=== PATIENT | female | born 1960 | race Caucasian/White ===

== ENCOUNTER → 2016-12-05 | Outpatient (CLI) | payer BC ==
[2016-08-30 12:30] VITALS: BP 111/57
[~2016-12-05] MED LIST: LEVO750T31 PO
--- NOTE | 2016-12-05 09:29 | RAD ---
DATE: 12/05/2016 EXAM: MAMMO NELSON SCREENING BILATERAL HISTORY: Screening. The history of breast reduction surgery is noted COMPARISON: Digitized film screening examination from 4 years earlier This study was interpreted with the benefit of Computerized Aided Detection (CAD). FINDINGS: The breast parenchyma shows scattered fibroglandular densities. Breast parenchyma level B. There has not been a significant change in the appearance of the breasts. Occasional benign-appearing calcifications are noted. IMPRESSION: Benign findings BI-RADS CATEGORY: 2 BENIGN FINDING(S) RECOMMENDED FOLLOW-UP: 12M 12 MONTH FOLLOW-UP PQRS compliance statement: Patient information was entered into a reminder system with a target due date 12/05/2017 for the next mammogram. Mammography is a sensitive method for finding small breast cancers, but it does not detect them all and is not a substitute for careful clinical examination. A negative mammogram does not negate a clinically suspicious finding and should not result in delay in biopsying a clinically suspicious abnormality. "Our facility is accredited by the [employer] Mammography Program."
== END | disposition home or self-care (01) ==
LOC: MAMMO 07:55
PROVIDERS: ATTEND Obstetrics & Gynecology
DX: Z12.31 Encounter for screening mammogram for malignant neoplasm of breast (principal); Z01.419 Encounter for gynecological examination (general) (routine) without abnormal findings
CPT/HCPCS: 77063; G0202; 77067

== ENCOUNTER → 2017-02-25 | Outpatient (CLI) | payer BC ==
[2016-08-30 12:30] VITALS: BP 111/57
--- NOTE | 2017-02-25 12:02 | RAD ---
Right index finger, 3 views, 02/25/2017: History: Index finger pain and swelling No acute fracture or dislocation is identified. There is a small periarticular calcification along the ulnar aspect of the PIP joint. This is probably due to old trauma. A gouty tophus is less likely considering the lack of adjacent bony erosion. There is a very tiny periarticular calcification at the DIP joint. IMPRESSION: 1. Small periarticular densities as described above. 2. No acute bony abnormality is detected.
== END | disposition home or self-care (01) ==
LOC: DXRADRC 07:58
PROVIDERS: ATTEND Physician Assistant Medical
DX: M79.644 Pain in right finger(s) (principal); M85.841 Other specified disorders of bone density and structure, right hand; M79.89 Other specified soft tissue disorders
CPT/HCPCS: 73140

== ENCOUNTER → 2017-06-19 | Outpatient (CLI) | payer BC ==
[2016-08-30 12:30] VITALS: BP 111/57
--- NOTE | 2017-06-19 15:27 | RAD ---
HAND BILAT 3V Clinical Indication: RHEUMATOID ARTHRITIS Comparison: None. Findings: No acute fracture or malalignment. The joint spaces are maintained. Bony mineralization is normal for the patient's age. No significant soft tissue abnormality. No radiopaque foreign body. IMPRESSION: No acute fracture or malalignment. The joint spaces are maintained.
--- NOTE | 2017-06-19 15:30 | RAD ---
FOOT BILAT 3V Clinical Indication: RHEUMATOID ARTHRITIS Comparison: None. Findings: Right foot: No acute fracture or malalignment. Os perineum. Calcaneal enthesophyte. The joint spaces are maintained. Bony mineralization is normal for the patient's age. No significant soft tissue abnormality. No radiopaque foreign body. Left foot: No acute fracture or malalignment. Os naviculare versus remote injury. Os perineum. The joint spaces are maintained. Bony mineralization is normal for the patient's age. No significant soft tissue abnormality. No radiopaque foreign body. IMPRESSION: No acute fracture or malalignment. The joint spaces are maintained.
== END | disposition home or self-care (01) ==
LOC: DXRAD 11:57
PROVIDERS: ATTEND Internal Medicine Rheumatology
DX: M05.79 Rheumatoid arthritis with rheumatoid factor of multiple sites without organ or systems involvement (principal)
CPT/HCPCS: 73130; 73630

== ENCOUNTER → 2017-09-04 | Outpatient (CLI) | payer BC ==
[2016-08-30 12:30] VITALS: BP 111/57
--- NOTE | 2017-09-04 15:48 | RAD ---
Indication: Chest congestion. Time of exam 1524 hours per Correlation is made with prior study from 10/15/2016. Previously noted parenchymal density in the right base has largely resolved. There is some mild residual density present right mid to lower lung field. The left lung is clear. No effusion or pneumothorax is seen. Impression: Residual versus new infiltrate or atelectasis right mid to lower lung field when compared with exam from 10/15/2016.
== END | disposition home or self-care (01) ==
LOC: PMG 15:10
PROVIDERS: ATTEND Physician Assistant Medical
DX: R09.89 Other specified symptoms and signs involving the circulatory and respiratory systems (principal); F17.200 Nicotine dependence, unspecified, uncomplicated
CPT/HCPCS: 71020

== ENCOUNTER → 2018-02-19 | Outpatient (CLI) | payer BC ==
[2016-08-30 12:30] VITALS: BP 111/57
--- NOTE | 2018-02-23 09:33 | RAD ---
DATE: 02/23/2018 EXAM: MAMMO NELSON SCREENING BILATERAL HISTORY: Screening. The history of breast reduction surgery is noted COMPARISON: Digitized film screening examination from 4 years earlier This study was interpreted with the benefit of Computerized Aided Detection (CAD). FINDINGS: The breast parenchyma shows scattered fibroglandular densities. Breast parenchyma level B. There has not been a significant change in the appearance of the breasts. Occasional benign-appearing calcifications are noted. No suspicious calcifications, spiculated mass or area of architectural distortion. The skin and nipples are within normal limits. IMPRESSION: Benign findings BI-RADS CATEGORY: 2 BENIGN FINDING(S) RECOMMENDED FOLLOW-UP: 12M 12 MONTH FOLLOW-UP PQRS compliance statement: Patient information was entered into a reminder system with a target due date for the next mammogram. Mammography is a sensitive method for finding small breast cancers, but it does not detect them all and is not a substitute for careful clinical examination. A negative mammogram does not negate a clinically suspicious finding and should not result in delay in biopsying a clinically suspicious abnormality. "Our facility is accredited by the [employer] Mammography Program."
== END | disposition home or self-care (01) ==
LOC: MAMMO 09:25
PROVIDERS: ATTEND Physician Assistant Medical
DX: Z12.31 Encounter for screening mammogram for malignant neoplasm of breast (principal)
CPT/HCPCS: 77063; 77067

== ENCOUNTER → 2018-02-26 | Outpatient (CLI) | payer BC ==
[2016-08-30 12:30] VITALS: BP 111/57
--- NOTE | 2018-02-26 12:24 | RAD ---
Left foot ultrasound, 02/26/2018: History: Lump between the third and fourth metatarsals The area of clinical concern in the left metatarsal region was carefully scanned. There is a predominantly hypoechoic, mildly heterogeneous process with internal vascularity present between the third and fourth metatarsals in the area of clinical concern. It can be seen with both plantar and anterior scanning. It is asymmetric compared to the right foot or the other intermetatarsal regions. In the axial plane it measures approximately 12 mm in greatest width. It is difficult to measure in the other planes. IMPRESSION: Solid-appearing mass between the third and fourth metatarsals as described above. The findings are nonspecific, however, the location raises possibility of a Akers's neuroma. A neoplastic etiology cannot be excluded. MR scanning is suggested for further evaluation.
== END | disposition home or self-care (01) ==
LOC: US 10:35
PROVIDERS: ATTEND Physician Assistant Medical
DX: G57.62 Lesion of plantar nerve, left lower limb (principal)
CPT/HCPCS: 76881

== ENCOUNTER → 2018-07-16 | Outpatient (CLI) | payer BC ==
[2016-08-30 12:30] VITALS: BP 111/57
[~2018-07-16] MED LIST changes: +AMOX1TAB61 PO; +PRED50TA PO
[2018-07-16 10:58] LABS: BASO # 0.1 x10^3/uL (0.0-0.2); BASO % 2 % (0-3); EOS # 0.1 x10^3/uL (0.0-0.7); EOS % 2 % (0-3); HEMATOCRIT 46.3 % (36.0-47.0); HEMOGLOBIN 15.5 g/dL (12.0-15.5); LYMPH # 1.1 x10^3/uL (1.0-4.8); LYMPH % 27 % (24-48); MEAN CORPUSCULAR HEMOGLOBIN 30 pg (25-35); MEAN CORPUSCULAR HGB CONC 34 g/dL (31-37); MEAN CORPUSCULAR VOLUME 88 fL (79-100); MONO # 0.4 x10^3/uL (0.0-1.1); MONO % 10 % (0-9); NEUT # 2.5 x10^3uL (1.8-7.7); NEUT % 59 % (31-73); PLATELET COUNT 211 x10^3/uL (140-400); RED BLOOD COUNT 5.23 x10^6/uL (3.50-5.40); RED CELL DISTRIBUTION WIDTH 13.7 % (11.5-14.5); WHITE BLOOD COUNT 4.2 x10^3/uL (4.0-11.0)
[2018-07-16 11:01] LABS: ALBUMIN 3.7 g/dL (3.4-5.0); ALBUMIN/GLOBULIN RATIO 0.9 (1.0-1.7); C REACTIVE PROTEIN 2.7 mg/L (0-3.3); CALCIUM 9.2 mg/dL (8.5-10.1); CREATININE 0.8 mg/dL (0.6-1.0); GFR 73.9; POTASSIUM 4.2 mmol/L (3.5-5.1); TOTAL BILIRUBIN 0.3 mg/dL (0.2-1.0); TOTAL PROTEIN 7.6 g/dL (6.4-8.2)
[2018-07-16 12:03] LABS: SEDIMENTATION RATE 10 (0-25)
== END | disposition home or self-care (01) ==
LOC: LAB 10:00
PROVIDERS: ATTEND Internal Medicine Rheumatology
DX: M05.79 Rheumatoid arthritis with rheumatoid factor of multiple sites without organ or systems involvement (principal); Z79.899 Other long term (current) drug therapy
CPT/HCPCS: 36415; 80053; 85025; 85651; 86140; 86704; 86706; 86803

== ENCOUNTER 2018-07-18 20:04 | Emergency (ER) | payer BC ==
[~2018-07-18] VITALS: Ht 170.2 cm; Wt 72.6 kg
[~2018-07-18 20:04] MED LIST changes: -AMOX1TAB61 PO; -PRED50TA PO
[2018-07-18 20:20] VITALS: BP 127/65
[2018-07-18] MEDS ORDERED: PRED50TA PO (20:35)
[2018-07-18] MEDS ORDERED: AMOX1TAB61 PO (20:35)
[2018-07-18] MEDS ORDERED: cefTRIAXone SODIUM 1 GM VIAL IV ONE (20:35)
--- NOTE | 2018-07-18 20:38 | PHYS DOC ---
Adult General Chief Complaint Chief Complaint cough HPI HPI This is a very pleasant 57 years old female with history of COPD presented in the emergency department with shortness of breath on exertion low grade temperature started yesterday . No chest pain or abdominal pain urgency frequency or hematuria Review of Systems Review of Systems Constitutional: + fever Eyes: Denies change in visual acuity, redness, or eye pain [] HENT: Denies nasal congestion or sore throat [] Respiratory:+ cough or shortness of breath [] Cardiovascular: No additional information not addressed in HPI [] GI: Denies abdominal pain, nausea, vomiting, bloody stools or diarrhea [] : Denies dysuria or hematuria [] Musculoskeletal: Denies back pain or joint pain [] Integument: Denies rash or skin lesions [] Neurologic: Denies headache, focal weakness or sensory changes [] Endocrine: Denies polyuria or polydipsia [] All other systems were reviewed and found to be within normal limits, except as documented in this note. Current Medications Current Medications Current Medications Medications (Trade) Dose Ordered Sig/Kam Start Time Stop Time Status Last Admin Dose Admin Albuterol Sulfate (Ventolin) 2.5 mg 1X ONCE 07/18/18 20:45 07/18/18 20:46 UNV Ceftriaxone Sodium (Rocephin Im) 1 gm 1X ONCE 07/18/18 20:45 07/18/18 20:46 UNV Prednisone (Prednisone) 60 mg 1X ONCE 07/18/18 20:45 07/18/18 20:46 UNV Allergies Allergies Allergies Coded Allergies Type Severity Reaction Last Updated Verified No Known Drug Allergies 08/30/16 No Physical Exam Physical Exam Constitutional: Well developed, well nourished, no acute distress, non-toxic appearance. [] HENT: Normocephalic, atraumatic, bilateral external ears normal, oropharynx moist, no oral exudates, nose normal. [] Eyes: PERRLA, EOMI, conjunctiva normal, no discharge. [] Neck: Normal range of motion, no tenderness, supple, no stridor. [] Cardiovascular:Heart rate regular rhythm, no murmur [] Lungs & Thorax: Diminished wheezing no crackles] Abdomen: Bowel sounds normal, soft, no tenderness, no masses, no pulsatile masses. [] Skin: Warm, dry, no erythema, no rash. [] Back: No tenderness, no CVA tenderness. [] Extremities: No tenderness, no cyanosis, no clubbing, ROM intact, no edema. [] Neurologic: Alert and oriented X 3, normal motor function, normal sensory function, no focal deficits noted. [] Psychologic: Affect normal, judgement normal, mood normal. [] Current Patient Data Vital Signs Vital Signs Date Time Temp Pulse Resp B/P (MAP) Pulse Ox O2 Delivery O2 Flow Rate FiO2 07/18/18 20:20 103.0 109 18 91 Room Air EKG EKG [] Radiology/Procedures Radiology/Procedures [] Course & Med Decision Making Course & Med Decision Making Pertinent Labs and Imaging studies reviewed. (See chart for details) [] Final Impression Final Impression COPD exacerbation Patient will be on prednisone, Augmentin, inhalers[] Problems: (1) COPD exacerbation Dragon Disclaimer Dragon Disclaimer This electronic medical record was generated, in whole or in part, using a voice recognition dictation system. TAYLA JOAQUIN MD Jul 18, 2018 20:38
[2018-07-18] MEDS: predniSONE 20 MG TABLET PO ONE (20:42)
[2018-07-18] MEDS: cefTRIAXone IM 1 GM VIAL IM ONE (20:42)
[2018-07-18] MEDS: ALBUTEROL SULFATE 2.5 MG/3 ML NEBU. NEB ONE (20:52)
== END 2018-07-18 21:12 | disposition home or self-care (01) ==
LOC: ER 20:04
DX: J44.1 Chronic obstructive pulmonary disease with (acute) exacerbation (principal)
CPT/HCPCS: 96372; 99283; J0696; J7512; J7613

== ENCOUNTER → 2018-09-02 | Outpatient (CLI) | payer BC ==
[~2018-09-02] MED LIST changes: +AMOX1TAB61 PO; +PRED50TA PO
[2018-09-02 10:08] LABS: BASO % 1 % (0-3); EOS # 0.1 x10^3/uL (0.0-0.7); EOS % 2 % (0-3); HEMOGLOBIN 14.9 g/dL (12.0-15.5); LYMPH # 1.6 x10^3/uL (1.0-4.8); LYMPH % 37 % (24-48); MEAN CORPUSCULAR HEMOGLOBIN 30 pg (25-35); MEAN CORPUSCULAR HGB CONC 34 g/dL (31-37); MEAN CORPUSCULAR VOLUME 89 fL (79-100); MONO # 0.5 x10^3/uL (0.0-1.1); MONO % 10 % (0-9); NEUT # 2.2 x10^3uL (1.8-7.7); NEUT % 51 % (31-73); PLATELET COUNT 221 x10^3/uL (140-400); RED BLOOD COUNT 4.93 x10^6/uL (3.50-5.40); RED CELL DISTRIBUTION WIDTH 14.8 % (11.5-14.5); WHITE BLOOD COUNT 4.4 x10^3/uL (4.0-11.0)
[2018-09-02 10:13] LABS: ALBUMIN 3.6 g/dL (3.4-5.0); ALBUMIN/GLOBULIN RATIO 0.9 (1.0-1.7); C REACTIVE PROTEIN 0.8 mg/L (0-3.3); CALCIUM 9.4 mg/dL (8.5-10.1); CREATININE 0.8 mg/dL (0.6-1.0); GFR 73.7; POTASSIUM 3.7 mmol/L (3.5-5.1); TOTAL BILIRUBIN 0.3 mg/dL (0.2-1.0); TOTAL PROTEIN 7.4 g/dL (6.4-8.2)
[2018-09-02 11:13] LABS: SEDIMENTATION RATE 8 (0-25)
== END | disposition home or self-care (01) ==
LOC: LAB 08:52
PROVIDERS: ATTEND Internal Medicine Rheumatology
DX: M05.79 Rheumatoid arthritis with rheumatoid factor of multiple sites without organ or systems involvement (principal)
CPT/HCPCS: 36415; 80053; 85025; 85651; 86140

== ENCOUNTER → 2019-06-27 | Outpatient (CLI) | payer BC ==
[2019-06-27 10:27] LABS: BASO # 0.1 x10^3/uL (0.0-0.2); BASO % 2 % (0-3); EOS # 0.1 x10^3/uL (0.0-0.7); EOS % 2 % (0-3); HEMOGLOBIN 14.8 g/dL (12.0-15.5); LYMPH # 1.1 x10^3/uL (1.0-4.8); LYMPH % 32 % (24-48); MEAN CORPUSCULAR HEMOGLOBIN 30 pg (25-35); MEAN CORPUSCULAR HGB CONC 34 g/dL (31-37); MEAN CORPUSCULAR VOLUME 89 fL (79-100); MONO # 0.4 x10^3/uL (0.0-1.1); MONO % 12 % (0-9); NEUT # 1.7 x10^3uL (1.8-7.7); NEUT % 53 % (31-73); PLATELET COUNT 212 x10^3/uL (140-400); RED BLOOD COUNT 4.94 x10^6/uL (3.50-5.40); WHITE BLOOD COUNT 3.3 x10^3/uL (4.0-11.0)
[2019-06-27 10:36] LABS: ALBUMIN 3.6 g/dL (3.4-5.0); ALBUMIN/GLOBULIN RATIO 0.9 (1.0-1.7); C REACTIVE PROTEIN 1.2 mg/L (0-3.3); CALCIUM 9.1 mg/dL (8.5-10.1); CREATININE 0.8 mg/dL (0.6-1.0); GFR 73.7; POTASSIUM 3.7 mmol/L (3.5-5.1); TOTAL BILIRUBIN 0.4 mg/dL (0.2-1.0); TOTAL PROTEIN 7.6 g/dL (6.4-8.2)
[2019-06-27 11:31] LABS: SEDIMENTATION RATE 11 (0-25)
--- NOTE | 2019-06-28 08:32 | RAD ---
Examination: HAND BILAT 3V History: Polyarthralgia Comparison/Correlation: None Findings: A total of 3 images of the right hand and a total of 3 images of the left hand were provided. Joint spaces are unremarkable. No fracture or bone destruction. Soft tissues are unremarkable. No bony erosions identified. Soft tissues are grossly unremarkable. Bony mineralization is adequate. Impression: No significant degenerative change or other suspicious process. Electronically signed by: Alex Guzman MD (06/28/2019 8:29 AM) [facility]
== END | disposition home or self-care (01) ==
LOC: DXRAD 09:54
PROVIDERS: ATTEND Internal Medicine Rheumatology
DX: M05.79 Rheumatoid arthritis with rheumatoid factor of multiple sites without organ or systems involvement (principal)
CPT/HCPCS: 36415; 73130; 80053; 85025; 85651; 86140

== ENCOUNTER → 2019-11-16 | Outpatient (CLI) | payer BC ==
--- NOTE | 2019-11-16 16:30 | RAD ---
FOOT LEFT 3V History: Soft tissue mass at the plantar foot.. Comparison study: None FINDINGS: Small lucency at the margin of the distal medial aspect of the proximal first phalanx. Nonspecific but likely a small erosion. No evidence of acute fracture. No aggressive appearing bone destruction. Joint spaces and alignment appear intact. Small calcaneal enthesophyte. No significant soft tissue abnormality is seen. IMPRESSION: 1. Small eccentric lucency at the distal medial aspect of the proximal first phalanx. This is nonspecific, could represent an erosion or sequela of gout. This does not have an aggressive appearance. Depending on clinical concern, could be further evaluated with radiographic follow-up in several months. 2. No evidence of a soft tissue mass although could be difficult to detect. Consider ultrasound or MR for further evaluation, as indicated. Electronically signed by: Bhavesh Becerra MD (11/16/2019 4:27 PM) [id number]
== END | disposition home or self-care (01) ==
LOC: DXRAD 11:33
PROVIDERS: ATTEND Podiatrist Foot & Ankle Surgery
DX: M79.89 Other specified soft tissue disorders (principal)
CPT/HCPCS: 73630

== ENCOUNTER → 2019-11-16 | Outpatient (CLI) | payer BC ==
[2019-11-16 11:33] LABS: ALBUMIN 3.6 g/dL (3.4-5.0); ALBUMIN/GLOBULIN RATIO 0.9 (1.0-1.7); CALCIUM 8.9 mg/dL (8.5-10.1); CREATININE 0.7 mg/dL (0.6-1.0); GFR 85.6; TOTAL BILIRUBIN 0.4 mg/dL (0.2-1.0); TOTAL PROTEIN 7.5 g/dL (6.4-8.2)
[2019-11-16 11:39] LABS: BASO % 1 % (0-3); EOS # 0.1 x10^3/uL (0.0-0.7); EOS % 1 % (0-3); HEMATOCRIT 43.2 % (36.0-47.0); HEMOGLOBIN 14.6 g/dL (12.0-15.5); LYMPH # 1.8 x10^3/uL (1.0-4.8); LYMPH % 37 % (24-48); MEAN CORPUSCULAR HEMOGLOBIN 31 pg (25-35); MEAN CORPUSCULAR HGB CONC 34 g/dL (31-37); MEAN CORPUSCULAR VOLUME 91 fL (79-100); MONO # 0.4 x10^3/uL (0.0-1.1); MONO % 9 % (0-9); NEUT # 2.5 x10^3uL (1.8-7.7); NEUT % 52 % (31-73); PLATELET COUNT 212 x10^3/uL (140-400); RED BLOOD COUNT 4.74 x10^6/uL (3.50-5.40); WHITE BLOOD COUNT 4.8 x10^3/uL (4.0-11.0)
[2019-11-16 11:41] LABS: POTASSIUM 4.7 mmol/L (3.5-5.1)
[2019-11-16 13:33] LABS: SEDIMENTATION RATE 5 (0-25)
== END | disposition home or self-care (01) ==
LOC: LAB 10:10
PROVIDERS: ATTEND Internal Medicine Rheumatology
DX: M05.79 Rheumatoid arthritis with rheumatoid factor of multiple sites without organ or systems involvement (principal)
CPT/HCPCS: 36415; 80053; 85025; 85651; 86140

== ENCOUNTER → 2019-11-18 | Outpatient (CLI) | payer BC ==
--- NOTE | 2019-11-21 18:05 | RAD ---
BILATERAL SCREENING MAMMOGRAM, 3-D History: Routine screening. Comparison: 12/08/2012, 12/05/2016, 02/19/2018 mammographic exams. Technique: MLO and CC digital tomosynthesis (3D) images obtained. Radiologist reviewed these images on dedicated workstation. Findings: Breast Tissue Density B : There are scattered areas of fibroglandular density. There are no dominant masses, suspicious microcalcifications, or architectural distortion. Benign calcifications are present. IMPRESSION: No mammographic evidence of malignancy. Recommend routine screening. BI-RADS category 1: Negative. The images were reviewed with computer-aided detection. Patient information is entered into reminder system with a target due date for the next screening mammogram. Mammography is the most sensitive method for finding small breast cancers, but it does not detect them all and is not a substitute for careful clinical examination. A negative mammogram does not negate a clinically suspicious finding and should not result in delay in biopsying a clinically suspicious abnormality. "Our facility is accredited by the [employer] Mammography Program." Electronically signed by: Alex Guzman MD (11/21/2019 6:02 PM) [id number]
== END ==
LOC: MAMMO 08:24
PROVIDERS: ATTEND Physician Assistant Medical
DX: Z12.31 Encounter for screening mammogram for malignant neoplasm of breast (principal)
CPT/HCPCS: 77063; 77067

== ENCOUNTER → 2020-11-23 | Outpatient (CLI) | payer MEDICARE, BC ==
--- NOTE | 2020-11-23 11:08 | RAD ---
EXAM: Chest, 2 views. HISTORY: Cough and smoking. COMPARISON: 09/04/2017 FINDINGS: 2 views of the chest are obtained. There is no infiltrate, pleural effusion or pneumothorax . There are mediastinal and left upper lobe clips. The heart is stable in size. There is hyperinflati on due to inspiratory effort or emphysema. IMPRESSION: No acute pulmonary finding. Electronically signed by: Veronica Nichols MD (11/23/2020 11:06 AM) [id number]
== END ==
LOC: RAD 10:39
PROVIDERS: ATTEND Physician Assistant Medical
DX: J44.9 Chronic obstructive pulmonary disease, unspecified (principal); Z87.891 Personal history of nicotine dependence
CPT/HCPCS: 71046

== ENCOUNTER 2021-02-09 08:09 | Emergency (ER) | payer MEDICARE, BC ==
[~2021-02-09] VITALS: Ht 167.6 cm; Wt 81.9 kg
--- NOTE | 2021-02-09 08:28 | PHYS DOC ---
Past History Past Medical History: Arthritis, Asthma, COPD, GERD, Hypothyroid, Pneumonia Past Surgical History: , Hysterectomy, Other Alcohol Use: None Drug Use: None General Adult EDM: Chief Complaint: SHORTNESS OF BREATH HPI: HPI: 60-year-old female presents with shortness of breath and chest tightness. Patient has history of COPD. She feels like she is having a little bit of chest discomfort with deep breathing. She believes it is from coughing so much lately. She has seen her primary care physician who put her on steroids. She is already been on them for for 5 days. She is still feeling a bit short of breath. She checked her oxygen at home and her home O2 showed 75. She was concerned that this might mean she has pneumonia. She typically runs around 90. She is not on home oxygen. She continues to smoke. No history of cardiac disease. She has been taking her COPD medicines as prescribed. She took a breathing treatment prior to arrival and she says that this made her feel a bit better. Review of Systems: Review of Systems: Constitutional: Denies fever or chills Eyes: Denies change in visual acuity HENT: Denies nasal congestion or sore throat Respiratory: Cough with shortness of breath Cardiovascular: Chest pain GI: Denies abdominal pain, nausea, vomiting, bloody stools or diarrhea : Denies dysuria Musculoskeletal: Denies back pain or joint pain Integument: Denies rash Neurologic: Denies headache, focal weakness or sensory changes Endocrine: Denies polyuria or polydipsia Lymphatic: Denies swollen glands Psychiatric: Denies depression or anxiety Allergies: Allergies: Allergies Coded Allergies Type Severity Reaction Last Updated Verified No Known Drug Allergies 08/30/16 No Physical Exam: PE: Constitutional: Well developed, well nourished, no acute distress, non-toxic appearance. [] HENT: Normocephalic, atraumatic, bilateral external ears normal, oropharynx moist, no oral exudates, nose normal. [] Eyes: PERRLA, EOMI, conjunctiva normal, no discharge. [] Neck: Normal range of motion, no tenderness, supple, no stridor. [] Cardiovascular: Heart rate regular rhythm, no murmur [] Lungs & Thorax: Bilateral breath sounds diminished with mild end expiratory wheeze at the right base [] Abdomen: Bowel sounds normal, soft, no tenderness, no masses, no pulsatile masses. [] Skin: Warm, dry, no erythema, no rash. [] Back: No tenderness, no CVA tenderness. [] Extremities: No tenderness, no cyanosis, no clubbing, ROM intact, no edema. [] Neurologic: Alert and oriented X 3, normal motor function, normal sensory function, no focal deficits noted. [] Psychologic: Affect normal, judgement normal, mood normal. [] EKG: EKG: [] Radiology/Procedures: Radiology/Procedures: [] Heart Score: C/O Chest Pain: Yes HEART Score for Chest Pain: HEART Score for Chest Pain Response (Comments) Value History Slighlty/Non-Suspicious 0 ECG Normal 0 Age >45 - < 65 1 Risk Factors 1 or 2 Risk Factors 1 Troponin < Normal Limit 0 Total 2 Risk Factors: Risk Factors: DM, Current or recent (<one month) smoker, HTN, HLP, family history of CAD, obesity. Risk Scores: Score 0 - 3: 2.5% MACE over next 6 weeks - Discharge Home Score 4 - 6: 20.3% MACE over next 6 weeks - Admit for Clinical Observation Score 7 - 10: 72.7% MACE over next 6 weeks - Early Invasive Strategies Course & Med Decision Making: Course & Med Decision Making Pertinent Labs and Imaging studies reviewed. (See chart for details) The patient's labs are unremarkable except for slightly elevated sodium and a slightly low potassium. I have given her a DuoNeb treatment. EKG is unremarkable. Troponin is negative. Her chest x-ray is negative for pneumonia. I think the patient is already on appropriate treatment. I have advised her to continue her therapy as prescribed. She is stable for discharge at this time. [] Dragon Disclaimer: Dragon Disclaimer: This electronic medical record was generated, in whole or in part, using a voice recognition dictation system. Departure Departure: Impression: Primary Impression: COPD exacerbation Disposition: HOME / SELF CARE / HOMELESS Condition: STABLE Referrals: ANISHA WYNNE (PCP) Patient Instructions: Chronic Obstructive Pulmonary Disease Exacerbation, [id number] MARY ANNE DESHPANDE DO February 09, 2021 08:28
[2021-02-09] MEDS ORDERED: IPRATRPIUM/ALBUTEROL 0.5/2.5MG 3 ML NEBU. NEB ONE (08:30)
[2021-02-09 08:33] VITALS: BP 164/94
--- NOTE | 2021-02-09 08:33 | RAD ---
XR CHEST 1V CLINICAL INDICATIONS: Chest pain COMPARISON: November 23, 2020. Findings: No acute lung infiltrate or pleural effusion or pulmonary edema or lung mass or pneumothora x is seen. The heart size, pulmonary vasculature, mediastinum and both alise are unremarkable. IMPRESSION: No acute radiographic abnormality is seen. Electronically signed by: Rolan Guillermo MD (02/09/2021 8:30 AM) [id number]
[2021-02-09 08:42] LABS: BASO % 1 % (0-3); EOS # 0.1 x10^3/uL (0.0-0.7); EOS % 1 % (0-3); HEMATOCRIT 40.4 % (36.0-47.0); HEMOGLOBIN 13.5 g/dL (12.0-15.5); LYMPH # 3.4 x10^3/uL (1.0-4.8); LYMPH % 41 % (24-48); MEAN CORPUSCULAR HEMOGLOBIN 31 pg (25-35); MEAN CORPUSCULAR HGB CONC 33 g/dL (31-37); MEAN CORPUSCULAR VOLUME 92 fL (79-100); MONO # 0.7 x10^3/uL (0.0-1.1); MONO % 8 % (0-9); NEUT % 49 % (31-73); PLATELET COUNT 240 x10^3/uL (140-400); RED BLOOD COUNT 4.39 x10^6/uL (3.50-5.40); WHITE BLOOD COUNT 8.2 x10^3/uL (4.0-11.0)
[2021-02-09 08:54] LABS: CREATININE 0.9 mg/dL (0.6-1.0); GFR 63.9; POTASSIUM 3.3 mmol/L (3.5-5.1)
[2021-02-09 09:00] LABS: ALBUMIN 3.7 g/dL (3.4-5.0); ALBUMIN/GLOBULIN RATIO 1.1 (1.0-1.7); TOTAL BILIRUBIN 0.3 mg/dL (0.2-1.0)
--- NOTE | 2021-02-09 09:50 | EKG ---
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
== END 2021-02-09 10:00 | disposition home or self-care (01) ==
LOC: ER 08:09
DX: J44.1 Chronic obstructive pulmonary disease with (acute) exacerbation (principal); K21.9 Gastro-esophageal reflux disease without esophagitis; Z90.710 Acquired absence of both cervix and uterus
CPT/HCPCS: 36415; 71045; 80053; 84484; 85025; 93005; 94640; 99284-25

== ENCOUNTER → 2021-04-19 | Outpatient (CLI) | payer MEDICARE, BC ==
[2021-04-19 17:05] LABS: FREE T4 1.09 ng/dL (0.76-1.46); THYROID STIM HORMONE (TSH) 0.942 uIU/mL (0.358-3.740)
[2021-04-26 08:10] LABS: TESTOSTERONE FREE 0.98 ng/dL (0.10-0.85); TESTOSTERONE TOTAL 43 ng/dL (4-50)
== END ==
LOC: LAB 10:33
PROVIDERS: ATTEND Obstetrics & Gynecology
DX: N95.1 Menopausal and female climacteric states (principal)
CPT/HCPCS: 36415; 84402; 84403; 84439; 84443

== ENCOUNTER → 2021-06-10 | Outpatient (CLI) | payer MEDICARE, BC ==
--- NOTE | 2021-06-10 09:59 | RAD ---
Examination: CT chest without contrast HISTORY: History of recurrent pneumonia COMPARISON: None TECHNIQUE: Axial CT images of the chest were performed without contrast. Coronal and sagittal reforma ts are performed Exposure: One or more of the following individualized dose reduction techniques were utilized for thi s examination: 1. Automated exposure control 2. Adjustment of the mA and/or kV according to patient size 3. Use of iterative reconstruction technique FINDINGS: The central airways are patent. The heart size grossly appears unremarkable. Small mediastinal lymph nodes identified. There are faint airspace opacities identified in the bilateral upper lobes, left li ngula likely infiltrates. No evidence of pleural effusion or pneumothorax. The visualized noncontrast ed liver, spleen, adrenals grossly appears unremarkable Mild degenerative changes thoracic spine. Lap band identified in the proximal stomach. IMPRESSION: 1. Faint airspace opacities identified in the bilateral upper lobes and left lingula likely infiltrat es/pneumonia. Follow-up to resolution. Electronically signed by: Arjun Clarke MD (06/10/2021 9:56 AM) [id number]
== END ==
LOC: CT 08:19
PROVIDERS: ATTEND Physician Assistant Medical
DX: J18.9 Pneumonia, unspecified organism (principal)
CPT/HCPCS: 71250

== ENCOUNTER → 2021-08-09 | Outpatient (CLI) | payer MEDICARE, BC ==
--- NOTE | 2021-08-09 09:29 | RAD ---
PA and lateral views of the chest. Comparison: 02/09/2021. Indication: Cough fever and viral infection Findings: The heart size is normal. No pneumothorax or effusion. Very mild patchy interstitial opacities are se en in the right lung base and the left lung apex. The bony structures are intact. Impression: 1. Minimal patchy interstitial opacities suggest atypical viral infection. Electronically signed by: Everett Boogie MD (08/09/2021 9:27 AM) [id number]
== END ==
LOC: RAD 09:07
PROVIDERS: ATTEND Nurse Practitioner Family
DX: B34.9 Viral infection, unspecified (principal)
CPT/HCPCS: 71046

== ENCOUNTER 2021-08-11 06:25 | Emergency (ER) | payer MEDICARE, BC ==
[~2021-08-11] VITALS: Ht 167.6 cm; Wt 81.9 kg
[2021-08-11 06:40] VITALS: BP 135/75
[2021-08-11] MEDS ORDERED: predniSONE 20 MG TABLET PO ONE (07:15)
--- NOTE | 2021-08-11 07:15 | PHYS DOC ---
Past History Past Medical History: GERD, Hypothyroid Past Surgical History: , Hysterectomy Additional Past Surgical Histo: LAP BAND, BREAST REDUCTION Alcohol Use: None Drug Use: None General Adult EDM: Chief Complaint: SHORTNESS OF BREATH HPI: HPI: Patient is a 60-year-old female with COPD coming in for shortness of breath. Patient was seen in urgent care 2 days ago and was diagnosed with viral pneumonia, was given a Z-Paulino there. Patient lives with her adult son who tested positive for Covid 2 days ago, patient's test 2 days ago was negative. Patient was vaccinated with her second dose of Moderna in April. Patient smokes tobacco but has not had a cigarette in the past 5 days. Review of Systems: Review of Systems: Constitutional: Denies fever or chills Eyes: Denies change in visual acuity HENT: Denies nasal congestion or sore throat Respiratory: Denies cough or shortness of breath Cardiovascular: Denies chest pain or edema GI: Denies abdominal pain, nausea, vomiting, bloody stools or diarrhea : Denies dysuria Musculoskeletal: Denies back pain or joint pain Integument: Denies rash Neurologic: Denies headache, focal weakness or sensory changes Endocrine: Denies polyuria or polydipsia Lymphatic: Denies swollen glands Psychiatric: Denies depression or anxiety Allergies: Allergies: Allergies Coded Allergies Type Severity Reaction Last Updated Verified No Known Drug Allergies 08/30/16 No Physical Exam: PE: Constitutional: Well developed, well nourished, no acute distress, non-toxic appearance. [] HENT: Normocephalic, atraumatic, bilateral external ears normal, oropharynx moist, no oral exudates, nose normal. [] Eyes: PERRLA, EOMI, conjunctiva normal, no discharge. [] Neck: Normal range of motion, no tenderness, supple, no stridor. [] Cardiovascular:Heart rate regular rhythm, no murmur [] Lungs & Thorax: Bilateral breath sounds clear to auscultation [] Abdomen: Bowel sounds normal, soft, no tenderness, no masses, no pulsatile masses. [] Skin: Warm, dry, no erythema, no rash. [] Back: No tenderness, no CVA tenderness. [] Extremities: No tenderness, no cyanosis, no clubbing, ROM intact, no edema. [] Neurologic: Alert and oriented X 3, normal motor function, normal sensory function, no focal deficits noted. [] Psychologic: Affect normal, judgement normal, mood normal. [] Current Patient Data: Vital Signs: Vital Signs Date Time Temp Pulse Resp B/P (MAP) Pulse Ox O2 Delivery O2 Flow Rate FiO2 08/11/21 06:40 101.6 98 22 135/75 (95) 93 Room Air EKG: EKG: [] Radiology/Procedures: Radiology/Procedures: [address] [address] IMAGING REPORT Signed PATIENT: MICHAEL MARY ACCOUNT: [id number] : 1960 LOCATION: ER AGE: 60 SEX: F EXAM STATUS: REG ER ORD. PHYSICIAN: YASSINE POWER MD REASON: pna PROCEDURE: CHEST AP ONLY EXAM: Chest, single view. HISTORY: Pneumonia. COMPARISON: 08/09/2021 FINDINGS: A frontal view of the chest is obtained. There has been interval increase in partially consolidated lateral right upper lobe infiltrate. The superimposed on stable diffuse increased interstitial opacity. There is nodular opacity overlying the right costophrenic angle due to atelectasis or infiltrate. There is stable suspected partially consolidated right middle lobe infiltrate. There is a stable cardiac silhouette. There are clips overlying the left upper thorax. No pleural effusion or pneumothorax is seen. There is a gastric lap band. IMPRESSION: Increase in suspected partially consolidated lateral right upper lobe infiltrate and stable partially consolidated right middle lobe infiltrate superimposed on diffuse interstitial infiltrate. Electronically signed by: Veronica Marquez MD (08/11/2021 7:29 AM) [id number] DICTATED AND SIGNED BY: VERONICA MARQUEZ MD DATE: 08/11/21 0727 CC: YASSINE POWER MD; ANISHA WYNNE ~MTH0 0 [] Heart Score: C/O Chest Pain: No Risk Factors: Risk Factors: DM, Current or recent (<one month) smoker, HTN, HLP, family history of CAD, obesity. Risk Scores: Score 0 - 3: 2.5% MACE over next 6 weeks - Discharge Home Score 4 - 6: 20.3% MACE over next 6 weeks - Admit for Clinical Observation Score 7 - 10: 72.7% MACE over next 6 weeks - Early Invasive Strategies Course & Med Decision Making: Course & Med Decision Making Pertinent Labs and Imaging studies reviewed. (See chart for details) [] Nunu Disclaimer: Nunu Disclaimer: This electronic medical record was generated, in whole or in part, using a voice recognition dictation system. Departure Departure: Impression: Primary Impression: Pneumonia Additional Impressions: Person under investigation for COVID-19 Influenza A Disposition: HOME / SELF CARE / HOMELESS Condition: STABLE Referrals: ANISHA WYNNE (PCP) Additional Instructions: You have been tested for or diagnosed with COVID-19. It is an infection caused by a new type of coronavirus. COVID-19 will cause cold-like or mild flu symptoms in most. It can cause more severe symptoms like problems breathing in some. There is no treatment for COVID-19. The body will clear the infection over time. Self-care will help to ease discomfort. Steps to Take: Self-Care Rest as needed. Healthy habits may help you feel better. Steps include: Choose healthy foods including fruits and vegetables. Drink water throughout the day. Get plenty of sleep each night. If you smoke, try to quit. It may ease breathing. Avoid alcohol. Keep Others Healthy The virus can spread to others. Droplets are released every time you sneeze or cough. The droplets can get into the mouth, nose, or eyes of people near you and lead to infection. To lower the chances of spreading COVID-19 to others: Stay at home until your doctor has said it is safe to leave. If you tested positive this will mean staying isolated until both of the following are true: At least 7 days have passed since the start of illness. You are free of fever for at least 72 hours without the use of medicine. During this time: - Avoid public areas, events, or transportation. Do not return to work or school until your doctor has said it is safe to do so. - Call ahead if you need to go to a medical center. Let them know you may have COVID-19. It will help them guide you where to go. They may also ask you to wear a facemask when you come to the office. - If you call for emergency medical services, let them know you may have COVID- 19. While at home: - Try to avoid close contact with others. Stay about 6 feet away. - If possible, spend most of your time in a separate room from others. - Use a face mask if you will be in close contact with others such as sharing a room or vehicle. - Have someone wipe down common surfaces in the home. Use household wire galvanizer every day on areas like doorknobs, counters, or sinks. - Cough or sneeze into a tissue. Throw the tissue away right after use. If a tissue is not available, cough or sneeze into your elbow. - Wash your hands often. Wash them after sneezing or coughing. Use soap and water and wash for at least 20 seconds. Alcohol based hand carbon lamp cleaner can be used if soap and water is not available. - Do not prepare food for others. Avoid sharing personal items like forks, spoons, or toothbrushes. - Avoid close contact with pets while you are sick. There is no evidence of the virus passing to pets. This is a safety step until more is known about this virus. Isolation can be frustrating. Social interaction can help. Keep in touch with friends and family through phone and tech options. You can still interact with others in your home, just keep a safe distance of about 6 feet. Follow-up: Your doctors office will check in with you to see if there are any changes in your health. You may be asked to keep track of symptoms to share with them. They will also let you know when you are clear to be in public again. Problems to Look Out For: Contact your doctor if your recovery is not going as you expect. Get emergency care if you have problems such as: - Trouble breathing - Nonstop chest pain or pressure - Changes in awareness, confusion, or problems waking - Lips or face have bluish color - Worsening of symptoms If you think you have an emergency, call for emergency medical services right away. [facility] Prednisone (PREDNISONE) 50 Mg Tablet 1 TAB PO DAILY for steroid, #5 TAB Prov: YASSINE POWER MD 08/11/21 Amoxicillin/Potassium Clav (AUGMENTIN 875-125 TABLET) 1 Each Tablet 1 TAB PO BID for antibiotic for 5 Days, #10 TAB 0 Refills Prov: YASSINE POWER MD 08/11/21 YASSINE POWER MD Aug 11, 2021 07:15
--- NOTE | 2021-08-11 07:31 | RAD ---
EXAM: Chest, single view. HISTORY: Pneumonia. COMPARISON: 08/09/2021 FINDINGS: A frontal view of the chest is obtained. There has been interval increase in partially cons olidated lateral right upper lobe infiltrate. The superimposed on stable diffuse increased interstiti al opacity. There is nodular opacity overlying the right costophrenic angle due to atelectasis or inf iltrate. There is stable suspected partially consolidated right middle lobe infiltrate. There is a st able cardiac silhouette. There are clips overlying the left upper thorax. No pleural effusion or pneu mothorax is seen. There is a gastric lap band. IMPRESSION: Increase in suspected partially consolidated lateral right upper lobe infiltrate and stab le partially consolidated right middle lobe infiltrate superimposed on diffuse interstitial infiltrat e. Electronically signed by: Veronica Nichols MD (08/11/2021 7:29 AM) [id number]
[2021-08-11] MEDS ORDERED: ACETAMINOPHEN 500 MG TABLET PO ONE (08:00)
[2021-08-11] MEDS ORDERED: AMOX1TAB61 PO (08:10)
[2021-08-11] MEDS ORDERED: PRED50TA PO (08:10)
[2021-08-11 08:13] LABS: INFLUENZA B PATIENT NEGATIVE (NEGATIVE)
[2021-08-11 08:18] LABS: INFLUENZA A PATIENT POSITIVE (NEGATIVE)
== END 2021-08-11 09:02 | disposition home or self-care (01) ==
LOC: ER 06:25
DX: J09.X1 Influenza due to identified novel influenza A virus with pneumonia (principal); J44.9 Chronic obstructive pulmonary disease, unspecified; K21.9 Gastro-esophageal reflux disease without esophagitis; E03.9 Hypothyroidism, unspecified; Z20.822 Contact with and (suspected) exposure to COVID-19
CPT/HCPCS: 71045; 87804; 99284; C9803; J7512; U0003

== ENCOUNTER → 2021-11-13 | Outpatient (CLI) | payer MEDICARE, BC ==
--- NOTE | 2021-11-13 12:21 | RAD ---
XR CHEST 2V History: Pneumonia Comparison: 08/11/2021 Technique: PA and lateral chest radiographs. Findings: There are right midlung nodular opacities and minimal left lower lobe opacities which appear persiste nt however improved from July comparison. No pleural effusion or pneumothorax. Left chest wall shirley rgical clips and partial left anterior second rib resection. Cardiac mediastinal silhouette and pulmo nary vasculature are within normal limits. Upper abdominal laparoscopic adjustable gastric band and f illing port are present in the expected orientation. Impression: 1. Right greater than left lung airspace disease appears persistent however improved from July 16 comparison. Recommend following to radiographic resolution with repeat radiographs or CT of the c hest. Electronically signed by: Stuart Alvarado MD (11/13/2021 12:18 PM) [id number]
== END ==
LOC: RAD 08:16
PROVIDERS: ATTEND Physician Assistant Medical
DX: J84.89 Other specified interstitial pulmonary diseases (principal); J18.9 Pneumonia, unspecified organism
CPT/HCPCS: 71046

== ENCOUNTER 2021-11-24 01:55 | Emergency (ER) | payer MEDICARE, BC ==
[~2021-11-24] VITALS: Ht 170.2 cm; Wt 81.9 kg
--- NOTE | 2021-11-24 01:58 | PHYS DOC ---
Past History Past Medical History: GERD, Hypothyroid Past Surgical History: , Hysterectomy Additional Past Surgical Histo: LAP BAND, BREAST REDUCTION Alcohol Use: None Drug Use: None General Adult HPI: HPI: ".. I having some shortness of breath.. "... " I was diagnosed with COVID on .. been on antibiotics... .. recently change to Levaquin... Patient is a 61 year old female who presents with above hx and complaints dyspnea patient has history of sleep apnea requiring oxygen 2 L. Patient recently diagnosed with viral pneumonia and started on a Z-Paulino. Patient completed Z-Paulino and now on Levaquin. Patient does still smoke. Patient had Moderna x 2, but no buster. Pt. recent travel from [facility]. . Pt. still smokes but much less. Pt. has hx of GERD, Hypothyorid, lap band, breast reduction, COPD, and arthritis. Pt follows with [facility] for care. Review of Systems: Review of Systems: Constitutional: Complains of fever or chills Eyes: Denies change in visual acuity HENT: Denies nasal congestion or sore throat Respiratory: Complains of a nonproductive cough and shortness of breath Cardiovascular: Denies chest pain or edema GI: Denies abdominal pain, nausea, vomiting, bloody stools or diarrhea : Denies dysuria Musculoskeletal: Denies back pain or joint pain Integument: Denies rash Neurologic: Denies headache, focal weakness or sensory changes Endocrine: Denies polyuria or polydipsia Lymphatic: Denies swollen glands Psychiatric: Denies depression or anxiety Family History: Family History: Son had COVID infection, relatives in [place] had COVID infection Current Medications: Current Meds: See nursing for home meds Allergies: Allergies: Allergies Coded Allergies Type Severity Reaction Last Updated Verified No Known Drug Allergies 08/30/16 No Physical Exam: PE: Constitutional: Moderate acute distress, non-toxic appearance. [] HENT: Normocephalic, atraumatic, bilateral external ears normal, oropharynx moist, no oral exudates, nose swollen turbinates clear rhinorrhea Eyes: PERRLA, EOMI, conjunctiva normal, no discharge. [] Neck: Normal range of motion, no tenderness, supple, no stridor. [] Cardiovascular: Tachycardia heart rate regular rhythm, no murmur [] Lungs & Thorax: Bilateral breath sounds to apex with scattered wheezes on auscultation [] Abdomen: Bowel sounds normal, soft, no tenderness, no masses, no pulsatile masses. Old surgery scars Skin: Warm, dry, no erythema, no rash. [Poor turgor Back: No tenderness, no CVA tenderness. [] Extremities: No tenderness, no cyanosis, no clubbing, ROM intact, no edema. Arthritic changes Neurologic: Alert and oriented X 3, normal motor function, normal sensory function, no focal deficits noted. [] Psychologic: Affect anxious judgement normal, mood normal. [] EKG: EKG: My interpretation EKG shows a sinus rhythm at 94 bpm. Does have a wavering respiratory baseline. Time EKG is 0337 hrs. [] Radiology/Procedures: Radiology/Procedures: [][address] [address] IMAGING REPORT Signed PATIENT: MICHAEL MARY ACCOUNT: [id number] : 1960 LOCATION: ER AGE: 61 SEX: F EXAM STATUS: REG ER ORD. PHYSICIAN: MARIA ALEJANDRA GAUTHIER MD REASON: dyspnea, pleuretic, Covid and Flu positive Omni 350 100cc PROCEDURE: CT ANGIOGRAPHY CHEST CT angiography chest with contrast PQRS statement: CT scans at this facility use dose reduction including either automated exposure control, iterative reconstructions, and /or weight based radiation dosing via mA and kV modification when appropriate to reduce radiation dose to as low as reasonably achievable. HISTORY: Dyspnea, pleuritic chest pain, covid positive, influenza positive. Contrast: 100 mL Omnipaque 300 intravenous contrast. 3-D MIP projections of the arteries were acquired. COMPARISON: CT chest June 10, 2021 FINDINGS: Heart size normal. Gastric banding there is a small hiatal hernia the gastroesophageal junction. Aorta is unremarkable. No pulmonary artery emboli. There is mediastinal adenopathy and mild right greater than left hilar adenopathy which has developed largest lymph nodes measuring up to 1.8 cm. Trachea and bronchi are unremarkable. There are numerous bilateral upper lobe greater than lower lobe heterogeneous opacities and extensive centrilobular nodules which have developed since prior study. Consolidative opacity right middle lobe medial segment with air bronchograms could be lobar pneumonia or atelectasis. No pleural effusions. Bones are unremarkable. IMPRESSION: 1. No pulmonary artery emboli. 2. Development of bilateral pulmonary opacities and centrilobular tiny nodules indicative of a bilateral multilobar endobronchial infectious/inflammatory process most likely pneumonia. Sarcoidosis would be a secondary consideration. 3. Mild mediastinal and hilar adenopathy has developed. 4. Follow-up CT chest imaging in 3 months is advised to document these findings result to exclude the possibility of neoplastic adenopathy and/or neoplastic pulmonary nodularity. Electronically signed by: Jan Khan MD (11/24/2021 5:16 AM) [facility] DICTATED AND SIGNED BY: JAN KHAN MD DATE: 11/24/21 050 CC: MARIA ALEJANDRA GAUTHIER MD; ANISHA WYNNE ~MTH0 [address] [place] [id number] IMAGING REPORT Signed PATIENT: MICHAEL MARY ACCOUNT: [id number] : 1960 LOCATION: ER AGE: 61 SEX: F EXAM STATUS: REG ER ORD. PHYSICIAN: MARIA ALEJANDRA GAUTHIER MD REASON: Dysnea PROCEDURE: PORTABLE CHEST 1V AP chest x-ray HISTORY: Dyspnea. COMPARISON: Chest x-ray November 13, 2021 FINDINGS: Heart size normal. Densities which could be surgical clips along the left hilum and left upper chest again noted. No pneumothorax. No pleural effusions. Pulmonary interstitial infiltrates have developed diffusely. Bones are unremarkable. IMPRESSION: Development of diffuse bilateral pulmonary interstitial infiltrates. This may represent pulmonary interstitial edema. Atypical infection such as viral pneumonia would also be a possibility. No pleural effusions evident. Electronically signed by: Jan Khan MD (11/24/2021 4:04 AM) [facility] [place] DICTATED AND SIGNED BY: JAN KHAN MD DATE: 11/24/21 0402 CC: MARIA ALEJANDRA GAUTHIER MD; ANISHA WYNNE ~MTH0 0 Heart Score: C/O Chest Pain: N/A HEART Score for Chest Pain: HEART Score for Chest Pain Response (Comments) Value History Slighlty/Non-Suspicious 0 ECG Normal 0 Age < 45 0 Risk Factors 1 or 2 Risk Factors 1 Troponin < Normal Limit 0 Total 1 Risk Factors: Risk Factors: DM, Current or recent (<one month) smoker, HTN, HLP, family history of CAD, obesity. Risk Scores: Score 0 - 3: 2.5% MACE over next 6 weeks - Discharge Home Score 4 - 6: 20.3% MACE over next 6 weeks - Admit for Clinical Observation Score 7 - 10: 72.7% MACE over next 6 weeks - Early Invasive Strategies Course & Med Decision Making: Course & Med Decision Making Pertinent Labs and Imaging studies reviewed. (See chart for details) Patient self isolate. Take Tylenol or Profen for discomfort. Use MDI 2 puffs 4 times a day. Follow-up primary care. Impression: 1. Covid infection - Dx. 11/05- Still + on Rapid today 2. Influenza A infection [] Dragon Disclaimer: Dragaishwarya Disclaimer: This electronic medical record was generated, in whole or in part, using a voice recognition dictation system. Departure Departure: Referrals: ANISHA WYNNE (PCP) Nunu Disclaimer This chart was dictated in whole or in part using Voice Recognition software in a busy, high-work load, and often noisy Emergency Department environment. It may contain unintended and wholly unrecognized errors or omissions. MARIA ALEJANDRA GAUTHIER MD Nov 24, 2021 01:58
[2021-11-24] MEDS ORDERED: CONTRAST GIVEN. MC PRN (03:30)
[2021-11-24] MEDS ORDERED: IV RINGERS SOLUTION,LACTATED 1,000 ML IV SCH (03:30)
[2021-11-24] MEDS ORDERED: IOHEXOL 350 MG/ML 100 ML VIAL. IV ONE (03:30)
[2021-11-24] MEDS ORDERED: ALBUTEROL SULFATE 8GM INHALER. INH ONE (03:30)
[2021-11-24 03:57] LABS: BGAS PH 7.42 (7.35-7.45)
--- NOTE | 2021-11-24 04:06 | RAD ---
AP chest x-ray HISTORY: Dyspnea. COMPARISON: Chest x-ray November 13, 2021 FINDINGS: Heart size normal. Densities which could be surgical clips along the left hilum and left up per chest again noted. No pneumothorax. No pleural effusions. Pulmonary interstitial infiltrates have developed diffusely. Bones are unremarkable. IMPRESSION: Development of diffuse bilateral pulmonary interstitial infiltrates. This may represent p ulmonary interstitial edema. Atypical infection such as viral pneumonia would also be a possibility. No pleural effusions evident. Electronically signed by: Cali Khan MD (11/24/2021 4:04 AM) [facility]
[2021-11-24 04:19] LABS: BASO % 0 % (0-3); EOS % 0 % (0-3); HEMATOCRIT 39.5 % (36.0-47.0); HEMOGLOBIN 13.1 g/dL (12.0-15.5); LYMPH % 15 % (24-48); MEAN CORPUSCULAR HEMOGLOBIN 31 pg (25-35); MEAN CORPUSCULAR HGB CONC 33 g/dL (31-37); MEAN CORPUSCULAR VOLUME 93 fL (79-100); MONO # 0.6 x10^3/uL (0.0-1.1); MONO % 9 % (0-9); NEUT # 5.3 x10^3uL (1.8-7.7); NEUT % 76 % (31-73); PLATELET COUNT 295 x10^3/uL (140-400); RED BLOOD COUNT 4.24 x10^6/uL (3.50-5.40); RED CELL DISTRIBUTION WIDTH 14.1 % (11.5-14.5); WHITE BLOOD COUNT 6.9 x10^3/uL (4.0-11.0)
--- NOTE | 2021-11-24 04:20 | EKG ---
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
[2021-11-24] MEDS ORDERED: ACETAMINOPHEN 500 MG TABLET PO ONE ×2 (04:22→05:00)
[2021-11-24 04:32] LABS: ANION GAP 9 (6-14); BLOOD UREA NITROGEN 11 mg/dL (7-20); CALCIUM 9.2 mg/dL (8.5-10.1); CARBON DIOXIDE 29 mmol/L (21-32); CHLORIDE 102 mmol/L (98-107); CREATININE 0.6 mg/dL (0.6-1.0); GFR 101.6; GLUCOSE 95 mg/dL (70-99); POTASSIUM 4.5 mmol/L (3.5-5.1); SODIUM 140 mmol/L (136-145)
[2021-11-24 04:43] LABS: INFLUENZA B PATIENT NEGATIVE (NEGATIVE)
[2021-11-24 04:46] LABS: ALK PHOS 68 U/L (46-116); ALT (SGPT) 22 U/L (14-59); AST (SGOT) 37 U/L (15-37); LIPASE 99 U/L (73-393); TOTAL BILIRUBIN 0.3 mg/dL (0.2-1.0); TOTAL PROTEIN 7.2 g/dL (6.4-8.2)
[2021-11-24 04:47] LABS: INFLUENZA A PATIENT POSITIVE (NEGATIVE)
[2021-11-24 04:49] LABS: DIRECT BILIRUBIN < 0.1 mg/dL (0.0-0.2)
[2021-11-24 05:11] VITALS: BP 152/90
--- NOTE | 2021-11-24 05:18 | RAD ---
CT angiography chest with contrast PQRS statement: CT scans at this facility use dose reduction including either automated exposure cont rol, iterative reconstructions, and /or weight based radiation dosing via mA and kV modification when appropriate to reduce radiation dose to as low as reasonably achievable. HISTORY: Dyspnea, pleuritic chest pain, covid positive, influenza positive. Contrast: 100 mL Omnipaque 300 intravenous contrast. 3-D MIP projections of the arteries were acquire d. COMPARISON: CT chest June 10, 2021 FINDINGS: Heart size normal. Gastric banding there is a small hiatal hernia the gastroesophageal junc tion. Aorta is unremarkable. No pulmonary artery emboli. There is mediastinal adenopathy and mild rig ht greater than left hilar adenopathy which has developed largest lymph nodes measuring up to 1.8 cm. Trachea and bronchi are unremarkable. There are numerous bilateral upper lobe greater than lower lob e heterogeneous opacities and extensive centrilobular nodules which have developed since prior study. Consolidative opacity right middle lobe medial segment with air bronchograms could be lobar pneumoni a or atelectasis. No pleural effusions. Bones are unremarkable. IMPRESSION: 1. No pulmonary artery emboli. 2. Development of bilateral pulmonary opacities and centrilobular tiny nodules indicative of a bilate ral multilobar endobronchial infectious/inflammatory process most likely pneumonia. Sarcoidosis would be a secondary consideration. 3. Mild mediastinal and hilar adenopathy has developed. 4. Follow-up CT chest imaging in 3 months is advised to document these findings result to exclude the possibility of neoplastic adenopathy and/or neoplastic pulmonary nodularity. Electronically signed by: Cali Khan MD (11/24/2021 5:16 AM) [facility]
[2021-11-24 05:23] LABS: AMPHETAMINE/METHAMPHETAMINE NEG (NEG); BARBITURATES NEG (NEG); BENZODIAZEPINES NEG (NEG); CANNABINOIDS NEG (NEG); COCAINE NEG (NEG); METHADONE NEG (NEG); OPIATES NEG (NEG); PHENCYCLIDINE NEG (NEG)
[2021-11-24 05:27] LABS: BACTERIA,URINE FEW /HPF (0-FEW); CLARITY,URINE CLEAR; COLOR,URINE YELLOW; GLUCOSE,URINE NEG (NEG); NITRITE,URINE NEG (NEG); RBC,URINE 0 /HPF (0-2); SQUAMOUS EPITHELIAL CELL,UR FEW /LPF; UROBILINOGEN,URINE 0.2 mg/dL (0.2 mg/dL)
== END 2021-11-24 05:31 | disposition home or self-care (01) ==
LOC: ER 01:55
DX: U07.1 COVID-19 (principal); J10.1 Influenza due to other identified influenza virus with other respiratory manifestations; K21.9 Gastro-esophageal reflux disease without esophagitis; E03.9 Hypothyroidism, unspecified; F17.200 Nicotine dependence, unspecified, uncomplicated
CPT/HCPCS: 36415; 36600; 71045; 71275; 80048; 80076; 80307; 81001; 82550; 82803; 83690; 83735; 83880; 84443; 84484; 85025; 85379; 85610; 85730; 87086; 87428; 93005; 94640; 96360; 96361; 99285; J7120; Q9967; 94664